=== PATIENT | female | born 1990 | race Caucasian/White ===

== ENCOUNTER 2016-09-09 15:39 | Emergency (ER) | payer OTHER ==
[~2016-09-09 15:39] MED LIST: AZIT250T PO; CHLO15MO2 PO; HYDR-971 PO; IBUP800T PO; LAMO200T PO; OLAN5TAB9 PO; ONDA4TAB7 PO; PRAZ1CAP2 PO; PRED20TA PO; RANI300T3 PO; TRAM50TA PO
[2016-09-09 15:50] VITALS: BP 127/94
--- NOTE | 2016-09-09 16:31 | PHYS DOC ---
General Chief Complaint: FACE PROBLEM Stated Complaint: FACIAL SWELLING Time Seen by MD: 16:23 Source: patient Exam Limitations: no limitations Problems: History of Present Illness Initial Comments Pt is 26/F to ED c/o dental pain/swelling. Pt reports L lower root canal 2 years ago. Increased pain/swelling, saw DDS last week finished amoxicillin with some relief but now hurting again and L facial swelling. No fever/chills/malaise requests pain meds. States she has f/ u DDS appt 2-3 weeks. Timing/Duration: last week Severity: severe Location: dental Prearrival Treatment: over the counter meds, prescription meds Modifying Factors: improves with other Associated Symptoms: facial pain/swelling, tooth pain Allergies: Coded Allergies: Iodinated Contrast Media - IV Dye (Verified Allergy, Intermediate, 04/26/14 ) Sulfa (Sulfonamide Antibiotics) (Verified Allergy, Intermediate, 04/26/14) Latex, Natural Rubber (Verified Allergy, Mild, 04/26/14) cefuroxime (Verified Allergy, Unknown, 06/10/15) Past Medical History Medical History: no pertinent history Surgical History: cholecystectomy Social History Smoker: cigarettes Alcohol: none Drugs: none Physical Exam General Appearance: no apparent distress, obese Nose: normal inspection Mouth/Throat: other (swelling/darkened teeth 19-21 no purulence/bony TTP airway clear) Neck: supple, trachea midline, lymphadenopathy (L) Cardiovascular/Respiratory: normal breath sounds, no respiratory distress 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 Rx: vicoprofen, clindamycin Follow up with your doctor in 2-3 days for recheck. Follow up with Dentist next available appointment. Return to ED with new or changing symptoms. MARKO SORENSEN DO Sep 09, 2016 16:31
[2016-09-09] MEDS ORDERED: HYDR-79 PO (16:33)
[2016-09-09] MEDS ORDERED: CLIN300C86 PO (16:33)
== END 2016-09-09 16:53 | disposition home or self-care (01) ==
LOC: ER 15:39
DX: K04.7 Periapical abscess without sinus (principal); L03.211 Cellulitis of face; F17.210 Nicotine dependence, cigarettes, uncomplicated; Z88.2 Allergy status to sulfonamides; Z88.1 Allergy status to other antibiotic agents; Z91.041 Radiographic dye allergy status; Z91.040 Latex allergy status
CPT/HCPCS: 99283

== ENCOUNTER 2018-08-21 10:07 | Emergency (ER) | payer SELFPAY ==
[~2018-08-21] VITALS: Ht 177.8 cm; Wt 124.0 kg
[~2018-08-21 10:07] MED LIST changes: +CLIN300C8 PO; +HYDR-1179 PO; +HYDR-3165 PO; -HYDR-971 PO; -IBUP800T PO; +IBUP800T19 PO; -LAMO200T PO; +LAMO200T2 PO
[2018-08-21] MEDS ORDERED: CYCL-331 PO (10:37)
[2018-08-21] MEDS ORDERED: NAPR500T8 PO (10:37)
--- NOTE | 2018-08-21 10:37 | PHYS DOC ---
Past History Past Medical History: No Pertinent History Past Surgical History: Cholecystectomy Smoking: Less than 1pk/day Alcohol Use: None Drug Use: None Adult General Chief Complaint Chief Complaint: BACK PAIN OR INJURY HPI HPI 28-year-old otherwise healthy female presents with back injury. She states she slipped and fell on some ice this morning. She states it's painful now to stand up straight. She has ambulated with some difficulty. She denies any radicular symptoms. She denies any bowel or bladder dysfunction. She denies any saddle paresthesias.[] Review of Systems Review of Systems Constitutional: Denies fever or chills [] Eyes: Denies change in visual acuity, redness, or eye pain [] HENT: Denies nasal congestion or sore throat [] Respiratory: Denies cough or shortness of breath [] Cardiovascular: No additional information not addressed in HPI [] GI: Denies abdominal pain, nausea, vomiting, bloody stools or diarrhea [] : Denies dysuria or hematuria [] Musculoskeletal: Per history of present illness[] Integument: Denies rash or skin lesions [] Neurologic: Denies headache, focal weakness or sensory changes [] Endocrine: Denies polyuria or polydipsia [] All other systems were reviewed and found to be within normal limits, except as documented in this note. Allergies Allergies Allergies Coded Allergies Type Severity Reaction Last Updated Verified Iodinated Contrast Media - IV Dye Allergy Intermediate 04/26/14 Yes Sulfa (Sulfonamide Antibiotics) Allergy Intermediate 04/26/14 Yes Latex, Natural Rubber Allergy Mild 04/26/14 Yes cefuroxime Allergy Unknown 06/10/15 Yes Physical Exam Physical Exam Constitutional: Well developed, well nourished, mild to moderate distress, non- toxic appearance. [] HENT: Normocephalic, atraumatic, bilateral external ears normal, oropharynx moist, no oral exudates, nose normal. [] Eyes: PERRLA, EOMI, conjunctiva normal, no discharge. [] Neck: Normal range of motion, no tenderness, supple, no stridor. [] Cardiovascular:Heart rate regular rhythm, no murmur [] Lungs & Thorax: Bilateral breath sounds clear to auscultation [] Abdomen: Bowel sounds normal, soft, no tenderness, no masses, no pulsatile masses. [] Skin: Warm, dry, no erythema, no rash. [] Back: Lumbar paraspinal muscle spasm no vertebral midline tenderness. [] Extremities: No tenderness, no cyanosis, no clubbing, ROM intact, no edema. [] Neurologic: Alert and oriented X 3, normal motor function, normal sensory function, no focal deficits noted. [] Psychologic: Affect normal, judgement normal, mood normal. [] Current Patient Data Vital Signs Vital Signs Date Time Temp Pulse Resp B/P (MAP) Pulse Ox O2 Delivery O2 Flow Rate FiO2 08/21/18 10:17 98.3 127 18 95 Room Air EKG EKG [] Radiology/Procedures Radiology/Procedures [] Course & Med Decision Making Course & Med Decision Making Pertinent Labs and Imaging studies reviewed. (See chart for details) [] Dragon Disclaimer Dragon Disclaimer This electronic medical record was generated, in whole or in part, using a voice recognition dictation system. Departure Departure: Impression: Primary Impression: Acute lumbar myofascial strain Disposition: HOME, SELF-CARE Condition: STABLE Referrals: ANDREW MARQUES (PCP) Patient Instructions: Back Pain, Adult Additional Instructions: Return to the emergency department with any new or concerning symptoms Scripts Naproxen (NAPROXEN) 500 Mg Tablet.dr 1 TAB PO Q12HR PRN for PAIN, #60 TAB 1 Refill Prov: JESSICA SMITH DO 08/21/18 Cyclobenzaprine Hcl (CYCLOBENZAPRINE HCL) 10 Mg Tablet 1 TAB PO Q8HRS PRN for PAIN, #20 TAB Prov: JESSICA SMITH DO 08/21/18 Problem Qualifiers Primary Impression: Acute lumbar myofascial strain Encounter type: initial encounter Qualified Codes: S39.012A - Strain of muscle, fascia and tendon of lower back, initial encounter JESSICA SMITH DO Aug 21, 2018 10:37
[2018-08-21 10:42] VITALS: BP 120/65
[2018-08-21] MEDS ORDERED: CYCLOBENZAPRINE 10 MG TABLET. PO ONE (11:00)
== END 2018-08-21 10:43 | disposition home or self-care (01) ==
LOC: ER 10:07
DX: S39.012A Strain of muscle, fascia and tendon of lower back, initial encounter (principal); F17.200 Nicotine dependence, unspecified, uncomplicated; Z91.040 Latex allergy status; Z88.2 Allergy status to sulfonamides; Z88.8 Allergy status to other drugs, medicaments and biological substances; W00.0XXA Fall on same level due to ice and snow, initial encounter; Y93.89 Activity, other specified; Y92.89 Other specified places as the place of occurrence of the external cause; Y99.8 Other external cause status
CPT/HCPCS: 99283